=== PATIENT | male | born 1935 | race Caucasian/White ===

== ENCOUNTER 2021-04-09 06:52 | Day surgery (SDC) | payer OTHER ==
[~2021-04-09] VITALS: Ht 172.7 cm; Wt 73.5 kg
[~2021-04-09 06:52] MED LIST: GLIP-110 PO; MONT10TA42 PO; SIMV-8 PO
[2021-04-09] MEDS ORDERED: MIDAZOLAM HCL 1MG/1ML-2 ML VIAL IV ONE (08:15)
[2021-04-09] MEDS ORDERED: fentaNYL CITRATE 100 MCG/2 ML VL IV ONE (08:15)
[2021-04-09] MEDS ORDERED: LIDOCAINE VISCOUS 2% 15ML UD MT ONE (08:15)
[2021-04-09] MEDS ORDERED: LIDOCAINE 2%HCL (LOCAL ANESTH.) INJ 20ML MDV ONE (09:00)
[2021-04-09] MEDS ORDERED: IODIXANOL 320MG/ML 100ML BTL IV ONE (09:00)
[2021-04-09] MEDS ORDERED: HEPARIN IN NS 1000Units/500mL 1,500 ML ONE (09:01)
[2021-04-09] MEDS ORDERED: ANGIOMAX 250 MG VIAL IV ONE (09:32)
[2021-04-09] MEDS ORDERED: HEPARIN SODIUM (PORCINE) 5000 UNITS/ML 1ML VIAL ONE (09:32)
[2021-04-09] MEDS ORDERED: fentaNYL CITRATE 100 MCG/2 ML VL ONE (09:33)
[2021-04-09] MEDS ORDERED: VERAPAMIL 2.5MG/ML INJ 2ML VIAL IV ONE (09:33)
[2021-04-09] MEDS ORDERED: MIDAZOLAM HCL 1MG/1ML-2 ML VIAL ONE (09:33)
[2021-04-09] MEDS ORDERED: SODIUM CHL 0.9% 0 ML ONE (09:33)
[2021-04-09] MEDS ORDERED: diphenhdrAMINE HCL 50 MG/1 ML VL ONE (10:09)
[2021-04-09] MEDS ORDERED: ONDANSETRON HCL 4 MG/2 ML VIAL IV PRN (11:00)
[2021-04-09] MEDS ORDERED: ACETAMINOPHEN 500 MG TAB PO PRN (11:00)
[2021-04-09] MEDS ORDERED: hydrALAZINE HCL 20 MG/ML VL ONE (12:45)
[2021-04-09] MEDS ORDERED: hydrALAZINE HCL 20 MG/ML VL IV ONE (12:45)
== END 2021-04-09 13:35 | disposition home or self-care (01) ==
LOC: CATH 06:52
PROVIDERS: ATTEND Internal Medicine
DX: Z01.810 Encounter for preprocedural cardiovascular examination (principal); F17.210 Nicotine dependence, cigarettes, uncomplicated; E11.9 Type 2 diabetes mellitus without complications; E78.5 Hyperlipidemia, unspecified; Z20.822 Contact with and (suspected) exposure to COVID-19; Z79.899 Other long term (current) drug therapy; Z98.890 Other specified postprocedural states
CPT/HCPCS: 93005; 93312; C1751; C1769; C1887; C1894; J0360; J1200; J1644; J2250; J3010; J7030; Q9967; U0003; 99152; 99153